=== PATIENT | female | born 1960 | race Caucasian/White ===

== ENCOUNTER 2016-12-30 06:15 | Day surgery (SDC) | payer BC ==
[~2016-12-30] VITALS: Ht 152.4 cm; Wt 54.4 kg
[2016-12-30 06:58] LABS: HEMATOCRIT 34.2 % (36.0-48.0); HEMOGLOBIN 11.2 g/dL (12-16); MCH 33.3 pg (26.0-34.0); MCHC 32.7 g/dL (31.0-37.0); MCV 101.8 fL (80.0-100.0); MEAN PLATELET VOLUME 8.9 fL (7.4-10.4); RBC 3.36 10x6/uL (4.00-5.40); RDW 13.3 % (11.5-14.5)
[2016-12-30] MEDS ORDERED: OYST-CAL-5001 TAB PO (07:33)
[2016-12-30] MEDS ORDERED: VITAMIN D31000 UNIT PO (07:33)
[2016-12-30] MEDS ORDERED: ZYRTEC10 MG PO (07:34)
[2016-12-30] MEDS ORDERED: CROMOLYN SOD40 MG/ML NS (07:34)
[2016-12-30] MEDS ORDERED: MIRALAX527 GM PO (07:34)
[2016-12-30] MEDS ORDERED: PRESERVISION AR1 CAP PO (07:34)
[2016-12-30] MEDS ORDERED: EFFEXOR75 MG PO (07:35)
[2016-12-30] MEDS ORDERED: XANAX0.25 MG PO (07:35)
[2016-12-30] MEDS ORDERED: SYNTHROID25 MCG PO (07:36)
[2016-12-30] MEDS ORDERED: PROTONIX40 MG PO (07:36)
[2016-12-30] MEDS ORDERED: ZOCOR10 MG PO (07:36)
[2016-12-30] MEDS ORDERED: NORTRIPTYLINE H50 MG PO (07:37)
[2016-12-30] MEDS ORDERED: ZANAFLEX4 MG PO (07:37)
[2016-12-30 07:41] VITALS: BP 126/76; Ht 152.4 cm; Wt 54.4 kg
--- NOTE | 2016-12-30 14:09 | NUR ---
1230--IV DC'D, PT UP TO DRESS. SANDRO ADAMS 1242--DISCHARGE INSTRUCTIONS GIVEN, PT VERBALIZES UNDERSTANDING. PT OFF UNIT VIA WC. SANDRO ADAMS
[2017-01-01 14:21] LABS: FUNGUS STAIN Final report (())
--- NOTE | 2017-01-13 07:55 | HP ---
PATIENT: KAMI LONG MEDICAL RECORD: [id number] ACCOUNT: [id number] LOCATION:[facility] : 58 ADMISSION DATE: 12/30/16 HISTORY AND PHYSICAL EXAMINATION HISTORY OF PRESENT ILLNESS: Kami is a 56-year-old female with chronic bilateral pansinusitis, refractory to medical management. She has been admitted for sinus surgery. PAST MEDICAL HISTORY: Includes reflux. PAST SURGICAL HISTORY: Includes partial hysterectomy in 1991, cholecystectomy. CURRENT MEDICATIONS: Alprazolam, venlafaxine, simvastatin, pantoprazole, levothyroxine, tizanidine, nortriptyline, Zyrtec, and Nasacort. ALLERGIES: No known drug allergies. PHYSICAL EXAMINATION: GENERAL: She is healthy-appearing. FACE: Normal, symmetric, no lesions. EYES: Sclerae and conjunctivae are normal. EARS: Canals and TMs are normal. NOSE: A bit large inferior turbinates. No masses, polyps, or drainage. ORAL CAVITY AND OROPHARYNX: Tongue protrudes in midline. Palate is normal. NECK: No masses, no adenopathy. CHEST: Clear. CARDIOVASCULAR: Regular rate and rhythm, no murmur. EXTREMITIES: Normal. IMPRESSION: Chronic bilateral pansinusitis. PLAN: Bilateral middle meatal antrostomies, bilateral ethmoidectomies, bilateral frontal sinus exploration, and sphenoidotomies. TRANSINT:[id number] Voice Confirmation ID: [id number] DOCUMENT ID: [id number] RUSSELL STRATTON MD at 0755 CC: [id number] DICTATION DATE: 12/27/16 0843 COREMAKER PIPE: 12/27/16 1035 [facility] 12/30/16 [place] [id number]
--- NOTE | 2017-01-13 07:55 | OP ---
PATIENT NAME: MC LONG MEDICAL RECORD: [id number] :58 LOCATION:[facility] ADMISSION DATE: SURGEON: DANDY WOLFE MD DATE OF OPERATION: 12/30/2016 PREOPERATIVE DIAGNOSIS: Chronic bilateral pansinusitis. POSTOPERATIVE DIAGNOSIS: Chronic bilateral pansinusitis. PROCEDURE: Bilateral endoscopic middle meatal antrostomies, bilateral endoscopic ethmoidectomies, bilateral frontal sinus exploration, and right sphenoidotomy. SURGEON: Dandy Wolfe MD ANESTHESIA: General orotracheal. BLOOD LOSS: 5 cc. SPECIMENS: Cultures from both ethmoid sinuses as well as the left maxillary sinus with Lukens trap contents from that left maxillary sinus. PACKING: None. COMPLICATIONS: None. DISPOSITION: Recovery, stable. There was some thin purulence through most of the sinuses was some mucosal edema, but the left maxillary sinus was full of extremely thick mucopurulent paste like material. DESCRIPTION OF PROCEDURE: She was brought to the operating room and placed in supine position, sedated and intubated by anesthesia. The table was turned 90 degrees. A head drape was applied and she was positioned for sinus surgery. She had already been decongested with Afrin preoperatively. Both sides of the nose were examined using a headlight and nasal speculum, the uncinate, base of the middle turbinate, inferior turbinate were injected with a total of 2.5 cc of 1% lidocaine with 1:100,000 epinephrine on a long 27-gauge needle and then 3 Afrin pledgets were placed in each side of the nose while she was positioned, prepped and draped for sinus surgery. Using a 0-degree scope, all the pledgets were removed from the right side of the nose, the nose was examined. The inferior turbinate was outfractured slightly with a Orland elevator. We went straight back to the sphenoid sinus to examine it first. The middle turbinate was normal using a 0-degree scope posteriorly. There was some polypoid tissue. I could get a small straight 5 suction into the sphenoid ostia, but there was this polypoid material covering it. With a straight biting pediatric forcep, I removed that polyp and opened things up and actually the sinus looked pretty good then, it was opened and really did not enlarge the bony ostia, a 7 suction would easily fit in there, there was some thin purulence. After that, the middle turbinate was medialized with a freer. The uncinate was fractured anteriorly and taken down partially with a microdebrider. The upbiting forceps was used to remove some edematous tissue around the maxillary ostia and then a large curved olive tip suction was inserted. The ethmoid bulla was entered inferomedially and the ethmoids were taken down from anterior to posterior through the grand lamella without really much bleeding at all. Cultures were taken of the ethmoid sinus. It was cleaned up. Some tiny bone fragments were OPERATIVE REPORT [id number] MC LONG removed and then a ____ small olive tip suction was inserted into the frontal sinus duct easily all the way up into the frontal sinus, very nice open duct. A single Afrin pledget was placed in the right ethmoid cavity, then the left side was addressed. All 3 Afrin pledgets were removed. Inferior turbinate was outfractured with a Orland and then, I again looked at the sphenoid sinus first with a 0-degree scope. The left side had a nice round open sphenoid sinus about the diameter of the scope. It was completely clean and normal, it was not manipulated. It then backed up, medialized the middle turbinate, and fractured the uncinate anteriorly and took it down with a microdebrider, taking down some the soft tissue and polypoid material around that maxillary ostia. Immediately, this thick purulent material was extruding. Cultures were taken. The ostia was cleaned up and then a Lukens trap was used on a large curved, long olive tip suction and inserted into the maxillary sinus to evacuate just a thick paste like material from that sinus. Once that was completely emptied, the Lukens trap was sent as specimen, but the ethmoid bulla was entered inferomedially with the microdebrider and again taking down all the ethmoids through grand lamella posteriorly. Again, some thin purulence, but everything came down cleanly and nicely. Some tiny bone fragments were removed and again a long, thin curved olive tip suction was then inserted into the frontal sinus duct very easily and nicely, clean opened up duct all the way into the frontal sinus, then a large curved olive tip suction was insertedinto that maxillary sinus on the left side, just irrigated it repeatedly, 5 or 6 times with 60 cc a syringe, evacuating that thick material and then looked in with a 30-degree scope. It was nice and clean. The pledget was removed from the right side of the nose, the nose was suctioned. Ethmoid cavities were cleaned up with a straight 7 suction just to make sure everything was cleaned. No bleeding. Suction cautery was used on the lateral aspect of the middle turbinate on the left, and there was really no other bleeding. The nasopharynx was suctioned. Some polypoid changes on the inferior turbinates posteriorly were cauterized with the suction cautery, then mupirocin ointment on a long curved olive tip suction was then put some, a couple of cc, in the left maxillary sinus. With the field clean and dry, eyes were examined and normal. She was awakened, extubated, and transported to recovery in good condition. No complications. TRANSINT:[id number] Voice Confirmation ID: [id number] DOCUMENT ID: [id number] DANDY WOLFE MD at 0755 CC: [id number] DICTATION DATE: 12/30/16 1020 BIG DATA ENGINEER: 12/30/16 1648 [facility] 12/30/16 [facility] [address] [place] [address]
[2017-01-28 07:26] LABS: FUNGUS MYCOLOGY CULTURE Final report (())
== END 2016-12-30 12:45 | disposition home or self-care (01) ==
LOC: D.OPS 06:15 → D.PAN 08:15 → D.OPS 12:45
PROVIDERS: Anesthesiology; Otolaryngology
DX: J32.4 Chronic pansinusitis (principal); J33.8 Other polyp of sinus